=== PATIENT | male | born 1980 | race Caucasian/White ===

== ENCOUNTER 2020-06-13 17:13 | Emergency (ER) | payer MEDICAID, SELFPAY ==
[2020-06-13 17:18] VITALS: BP 135/82; PULSE 77; RESP 16; TEMP 36.7; O2SAT 99
--- NOTE | 2020-06-13 17:41 | ED.SKABFB ---
HPI - Skin/Abscess/Foreign Bdy General Chief complaint: Skin/Abscess/Foreign Body Stated complaint: sores on face/ears Time Seen by Provider: 06/13/20 17:26 Source: patient and RN notes reviewed Mode of arrival: ambulatory Limitations: no limitations History of Present Illness HPI narrative: Patient presents today complaining of a crusting rash to the bilateral external ears, spreading across the cheeks and nose for the past 2 weeks. He has tried no [id number] treatment prior to arrival. Denies any additional symptoms. MD complaint: rash Related Data Allergies Allergy/AdvReac Type Severity Reaction Status Date / Time poison jonel extract Allergy Mild RASH Verified 06/13/20 17:25 Review of Systems Review of Systems: Narrative: CONSTITUTIONAL: Denies body aches, fever, chills, or sweats. EYES: Denies visual changes, redness, or discharge. ENT: Denies rhinorrhea, congestion, sore throat, or otalgia. CARDIOVASCULAR: Denies chest pain, palpitations, or edema. RESPIRATORY: Denies cough or dyspnea. GASTROINTESTINAL: Denies abdominal pain, nausea, vomiting, or diarrhea. GENITOURINARY: Denies dysuria or hematuria. SKIN: Denies itching, or wounds. + Facial rash MUSCULOSKELETAL: Denies back pain, joint pain, or myalgia. NEUROLOGIC: Denies headache, numbness, tingling, or weakness. PSYCH: Denies depression or anxiety. PMFSH Comments At time of signature, I have reviewed and agree with nursing past medical, surgical, social and family history unless otherwise noted. Please see nursing chart for further information. There is no relevant family history pertinent to the presenting complaint Exam Narrative: Exam Narrative: GENERAL: Well-appearing, well-nourished, and in no acute distress. HEAD: Normocephalic, atraumatic. EYES: EOMI. No redness or drainage. Conjunctivae normal. ENT: Mucous membranes pink and moist. Nares clear. No rhinorrhea. TMs normal bilaterally. Throat normal. Uvula midline. NECK: Normal AROM. Supple. No lymphadenopathy. CHEST: No respiratory distress. EXTREMITIES: Normal range of motion. No edema. SKIN: Warm, dry. Capillary refill normal. Normal skin turgor. External ears are covered in a erythematous maculopapular rash with significant honey crusting. This rash extends over the cheeks and nasal bridge NEURO: No focal deficits. Alert and oriented x3. Gait steady. PSYCH: Normal affect. No signs of depression or anxiety. Course Vital Signs Vital signs: Vital Signs Temperature 98.1 F 06/13/20 17:18 Pulse Rate 77 06/13/20 17:18 Respiratory Rate 16 06/13/20 17:18 Blood Pressure 135/82 06/13/20 17:18 Pulse Oximetry 99 06/13/20 17:18 Temperature 98.1 F 06/13/20 17:18 Pulse Rate 77 06/13/20 17:18 Respiratory Rate 16 06/13/20 17:18 Blood Pressure 135/82 06/13/20 17:18 Pulse Oximetry 99 06/13/20 17:18 Reviewed. Pt has been instructed to follow up with his PCP regarding his elevated blood pressure today. MDM - Skin/Abscess/Foreign Bdy Differential Diagnosis Differential diagnosis: Likely abscess of skin or subcutaneous tissue, viral exanthem, urticaria, allergic reaction to drug, cellulitis, eczema, insect bites, impetigo and contact dermatitis Critical Care Time Critical Care Time Critical Care Time: No Discharge Plan Discharge Clinical Impression: Impetigo Patient Disposition: Home, Self-Care Condition: Stable Instructions: Antibiotic Form, Impetigo (DC) Additional Instructions: You have been diagnosed with impetigo, a bacterial infection of your skin. Please take the Keflex and use the mupirocin ointment as directed. Change your mask frequently. Do not use your Bluetooth earbuds until the infection is resolved. Wash your hands frequently. Follow-up with your PCP with any worsening symptoms or concerns. Your blood pressure was elevated above 120/80 today at Urgent Care. This puts you above the threshold for follow up. Please schedule a follo
== END 2020-06-13 17:50 | disposition home or self-care (01) ==
PROVIDERS: Emergency Provider Nurse Practitioner
DX: L01.00 Impetigo, unspecified (principal)
CPT/HCPCS: 99213; G0463

== ENCOUNTER 2024-05-13 17:27 | Emergency (ER) | payer OTHER, SELFPAY ==
[2024-05-13 17:52] VITALS: BP 122/77; PULSE 77; RESP 16; TEMP 37.1; O2SAT 100
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
== END 2024-05-13 18:35 | disposition home or self-care (01) ==
PROVIDERS: Emergency Provider Registered Nurse
DX: K02.9 Dental caries, unspecified (principal); K04.7 Periapical abscess without sinus; F17.210 Nicotine dependence, cigarettes, uncomplicated
CPT/HCPCS: 99213; G0463